=== PATIENT | male | born 1995 | race Caucasian/White ===

== ENCOUNTER 2024-09-26 18:21 | Emergency (ER) | payer BC, SELFPAY ==
--- NOTE | ~2024-09-26 | XR_ITS ---
XR chest 2V Ordering provider: Fredo Zelaya MD History: 28 years Male with . cough, BODY ACHES, CHILLS . Comparison: July 06, 2024 FINDINGS: MEDIASTINUM: The cardiac silhouette is not enlarged. LUNGS: No infiltrates, effusions or pneumothorax. OTHER: No free air under the diaphragm. IMPRESSION: No acute cardiopulmonary pathology. Reviewed, dictated and finalized at location A. MIC ENGINEER
[2024-09-26 18:57] VITALS: BP 142/96; PULSE 123; RESP 20; TEMP 37.1; O2SAT 97
[2024-09-26 21:02] LABS: Influenza A QL RT-PCR Positive (Negative); Influenza B QL RT-PCR Negative (Negative); RSV RNA, RT-PCR Negative (Negative); SARS-CoV-2 RNA PCR Negative (Negative)
--- NOTE | 2024-09-26 21:25 | ED_ITS ---
HPI - General Adult General Chief complaint: Upper Respiratory Infection Stated complaint: congestion, sore throat, body aches Time Seen by Provider: 09/26/24 19:43 History of Present Illness HPI narrative: patient is a 28-year-old male who presents ER with sinus congestion, sore throat, body aches. Had upper respiratory symptoms over last week however body aches and chills started today. No aggravating factors. Related Data Allergies Allergy/AdvReac Type Severity Reaction Status Date / Time No Known Allergies Allergy Verified 09/26/24 18:22 Review of Systems Constitutional: Constitutional: Reports no additional constitutional complaints ENT: Reports system reviewed and no additional complaints, except as documented Cardiovascular: Cardiovascular: Reports no additional cardiovascular complaints Respiratory: Respiratory: Reports no additional respiratory complaints Gastrointestinal: Gastrointestinal: Reports no additional gastrointestinal complaints [facility] Past Medical History Medical History (Updated 09/26/24 @ 21:33 by Fredo Zelaya MD) Healthy adult male Exam Narrative: GENERAL: Well-appearing, well-nourished, and in no acute distress. HEAD: Normocephalic, atraumatic. ENT: Mucous membranes moist. CHEST: Clear to auscultation. No respiratory distress. HEART: Regular rate and rhythm. Normal peripheral pulses. EXTREMITIES: Normal range of motion. No edema. NEURO: Alert and oriented x3. PSYCH: Normal mood and affect. Course Course Emergency Course: patient with influenza. Flu symptoms sound like they started today. Declined IV fluid or Toradol. Discharged with Tamiflu. Vital Signs Vital signs: Vital Signs Temperature 98.8 F 09/26/24 18:57 Pulse Rate 123 H 09/26/24 18:57 Respiratory Rate 20 09/26/24 18:57 Blood Pressure 142/96 H 09/26/24 18:57 Pulse Oximetry 97 09/26/24 18:57 Oxygen Delivery Room Air 09/26/24 18:57 Temperature 98.8 F 09/26/24 18:57 Pulse Rate 123 H 09/26/24 18:57 Respiratory Rate 20 09/26/24 18:57 Blood Pressure 142/96 H 09/26/24 18:57 Pulse Oximetry 97 09/26/24 18:57 Oxygen Delivery Room Air 09/26/24 18:57 Medical Decision Making Vital Signs Vital Signs: Vital Signs Temperature 98.8 F 09/26/24 18:57 Pulse Rate 123 H 09/26/24 18:57 Respiratory Rate 20 09/26/24 18:57 Blood Pressure 142/96 H 09/26/24 18:57 Pulse Oximetry 97 09/26/24 18:57 Oxygen Delivery Room Air 09/26/24 18:57 Temperature 98.8 F 09/26/24 18:57 Pulse Rate 123 H 09/26/24 18:57 Respiratory Rate 20 09/26/24 18:57 Blood Pressure 142/96 H 09/26/24 18:57 Pulse Oximetry 97 09/26/24 18:57 Oxygen Delivery Room Air 09/26/24 18:57 Lab Data Labs: Lab Results 09/26/24 Range/Units 20:12 Influenza A (RT-PCR) Positive A (Negative) Influenza B (RT-PCR) Negative (Negative) RSV (RT-PCR) Negative (Negative) SARS-CoV-2 RNA (RT-PCR) Negative (Negative) Imaging Data Radiologist's impression: ITS Impressions Chest X-Ray 09/26/24 20:11 IMPRESSION: No acute cardiopulmonary pathology. Discharge Plan Discharge Clinical Impression: Influenza A Patient Disposition: Home, Self-Care Condition: Stable Instructions: Influenza (ED) Additional Instructions: As discussed you have a viral illness. Unfortunately there are no specific medications we can give you to make the illness end faster. Antibiotics do not work for viral illnesses. However, you can take Acetaminophen or Ibuprofen to help with fevers and pain. Stay well hydrated and rested. Return to the emergency department if your fevers and chills continue to worse after 5 days, if you develop worsening cough with thick sputum, or are unable to stay hydrated. Contact your primary care provider in the next few days for a re-evaluation and to make sure your symptoms are improving. Patient Language: Prydeinig Prescriptions: New oseltamivir 75 mg capsule 75 mg PO BID Qty: 10 0RF Follow-up/Referrals: PHYSICIAN,GENETICS TEACHER [Primary Care Provider] - Néstor Davidson MD [Physician] - 1 Week
[2024-09-26 21:44] VITALS: BP 146/90; PULSE 87; RESP 15; O2SAT 97
== END 2024-09-26 21:45 | disposition home or self-care (01) ==
PROVIDERS: Emergency Provider Emergency Medicine
DX: J10.1 Influenza due to other identified influenza virus with other respiratory manifestations (principal); Z20.822 Contact with and (suspected) exposure to COVID-19
CPT/HCPCS: 71046; 87637; 99283

== ENCOUNTER 2025-05-12 00:32 | Emergency (ER) | payer OTHER, BC, SELFPAY ==
[2025-05-12 00:37] VITALS: BP 154/93; PULSE 77; RESP 20; TEMP 36.6; O2SAT 96
== END 2025-05-12 06:11 | disposition left against medical advice (07) ==
DX: S19.9XXA Unspecified injury of neck, initial encounter (principal)
CPT/HCPCS: 99199